=== PATIENT | female | born 1965 | race Caucasian/White ===

== ENCOUNTER 2019-08-04 09:35 | Day surgery (SDC) | payer MEDICAID ==
[2019-08-03 14:47] LABS: HEMATOCRIT 42.1 % (36.0-48.0); HEMOGLOBIN 13.9 g/dL (12-16); MCH 31.6 pg (26.0-34.0); MCV 95.7 fL (80.0-100.0); MEAN PLATELET VOLUME 10.3 fL (7.4-10.4); RBC 4.4 10x6/uL (4.00-5.40); RDW 13.4 % (11.5-14.5); WBC 8.5 10x3/uL (4.8-10.8)
[~2019-08-04] VITALS: Ht 162.6 cm; Wt 95.3 kg
[~2019-08-04 09:35] MED LIST: ALBUTEROL SULF8.5 GM INH; ASCORBIC ACID500 MG PO; ASPIRIN81 MG PO; BLACK COHOSH200 MG PO; CELEXA20 MG PO; HYDROCHLOROTHIA25 MG PO; HYDROCODON-ACE1 EA10 PO; MOBIC7.5 MG PO; QUESTRAN LIG1 PACKET PO; XANAX0.5 MG PO
[2019-08-04 10:12] VITALS: BP 105/65; Ht 162.6 cm; Wt 95.3 kg
[2019-08-04] MEDS ORDERED: PRIMROSE (10:23)
--- NOTE | 2019-08-04 14:11 | NUR ---
1355-DISCHARGE CRITERIA MET. REMOVED IV WITH CATH INTACT,DISPOSED INTO SHARPS,COVERED SITE WITH BANDAID. REVIEWED POST OPERATIVE INSTRUCTIONS WITH PT AND SPOUSE.VERBALIZED UNDERSTANDING. ESCORTED OUT VIA W/C WITH SPOUSE TO DRIVE HOME
--- NOTE | 2019-09-06 09:04 | OP ---
PATIENT NAME: KRISHNA ENGLAND MEDICAL RECORD: [id number] :65 LOCATION:D.OPS ADMISSION DATE: SURGEON: BENNY CANALES DATE OF OPERATION: 08/04/2019 SURGEON: Benny Canales DPM PREOPERATIVE DIAGNOSIS: Plantar fasciitis, right foot. POSTOPERATIVE DIAGNOSIS: Plantar fasciitis, right foot. PROCEDURE: Open partial plantar fasciotomy, right foot. ANESTHESIA: Local with monitored anesthesia care. HEMOSTASIS: Maintained on the field. ESTIMATED BLOOD LOSS: Minimal. MATERIALS: 3-0 Vicryl and 4-0 nylon. INJECTABLES: A 10 mL 0.5% bupivacaine with epinephrine. The patient has longstanding history of pain associated with the right foot. She has not improved with traditional conservative modalities. She is here today for surgical correction. We have explained to her the risks and benefits of the procedures, complications were discussed. All questions were answered. She was appropriately consented for the above-mentioned procedure. DESCRIPTION OF PROCEDURE: The patient was brought into the operating room and placed on the operating table in a supine position. A timeout was called with Dr. Canales, who identified the patient, the surgical site, and the surgery to be performed. Once appropriate anesthesia was obtained, the foot was prepped and draped in the usual aseptic manner. The pneumatic ankle tourniquet was inflated to 250 mmHg on the well-padded right ankle. Attention was directed to the plantar medial aspect of the right foot where a 2-cm linear incision was made just over the medial calcaneal tubercle area. This incision was carried deep to soft tissue with care being taken to retract any vital neurovascular structures. All bleeders were cauterized along the way. Through this incision, the plantar fascia was identified. Next, utilizing a fresh 15 blade, the medial one half of the plantar fascia was sharply transected. The surgical site was then inspected for any remaining tight plantar fascial bands and none were noted. The surgical site was then irrigated with copious amounts of normal sterile saline via bulb syringe. The deep structures and fascia were reapproximated and coapted using 3-0 Vicryl. The skin was then reapproximated and coapted with 4-0 nylon. A dressing consisting of Xeroform, 4 x 4's, Kerlix, and Kahlil bandage was applied to the right foot. The pneumatic ankle tourniquet was deflated and cap refill time is immediate to the right foot. The patient was discharged home with instructions to ice and elevate the right foot. She has a boot to further help offload the foot. She has my cell phone OPERATIVE REPORT [id number] KRISHNA ENGLAND number for any after hour difficulties and there were no complications with this procedure. TRANSINT:[id number] Voice Confirmation ID: [id number] DOCUMENT ID: [id number] BENNY CANALES at 0904 CC: [id number] DICTATION DATE: 08/06/19 1520 CHEMICAL ENGINEER: 08/06/192121 [facility] [place] 08/04/19 [id number] [place] [address]
== END 2019-08-04 13:55 | disposition home or self-care (01) ==
LOC: D.OPS 09:35 → D.PAN 12:00 → D.OPS 12:00
PROVIDERS: Anesthesiology; ATTEND Podiatrist
DX: M72.2 Plantar fascial fibromatosis (principal)